=== PATIENT | female | born 2000 | race Caucasian/White ===

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

== ENCOUNTER 2022-09-04 23:03 | Emergency (ER) | payer MEDICAID ==
[~2022-09-04] VITALS: Ht 152.4 cm; Wt 65.8 kg
[2022-09-04 23:04] VITALS: BP_SYST 139
--- NOTE | 2022-09-04 23:04 | NUR ---
Triaged and placed patient back to the waiting room. No acute respiratory distress at this time. VSS. Informed patient to notify ED staff for any changes in condition or worsening of symptoms while waiting to be seen by a provider. Patient verbalized understanding.
--- NOTE | 2022-09-05 00:02 | NUR ---
Patient placed in ER BED 4 for evaluation. Bed in lowest position with siderails up. Report given to ABUNDIO HERRING for continuity of care. Instructed to notify ED staff for any changes in condition or worsening of symptoms. Patient verbalized understanding.
[2022-09-05] MEDS ORDERED: IBUP-1969 PO (00:28)
[2022-09-05] MEDS ORDERED: PRED20TA PO (00:28)
--- NOTE | 2022-09-05 00:28 | NUR ---
Dr. ALEXANDER at bedside examining the patient.
--- NOTE | 2022-09-05 00:30 | NUR ---
Patient given written and verbal discharge instructions and verbalizes understanding. ER MD discussed with patient the results and treatment provided. Patient in stable condition. ID arm band removed. Rx of IBUPROFEN AND PREDNISONE given. Patient educated on pain management and to follow up with PMD. Pain Scale 0/10. Opportunity for questions provided and answered. Medication side effect fact sheet provided.
[2022-09-05 00:42] VITALS: BP_SYST 134
== END 2022-09-05 00:42 | disposition home or self-care (01) ==
LOC: SED 23:03
DX: H92.02 Otalgia, left ear (principal); R05.9 Cough, unspecified; J34.89 Other specified disorders of nose and nasal sinuses; Z79.899 Other long term (current) drug therapy
CPT/HCPCS: 99283